=== PATIENT | female | born 1945 ===

== ENCOUNTER 2024-09-06 07:00 | Outpatient (CLI) | payer OTHER ==
[~2024-09-06] VITALS: Ht 152.4 cm; Wt 53.1 kg
[2024-09-06] MEDS ORDERED: PEPCID AC20 MG PO (12:36)
[2024-09-06] MEDS ORDERED: VERAPAMIL ER120 MG PO (12:36)
[2024-09-06] MEDS ORDERED: COZAAR50 MG PO (12:36)
[2024-09-06 12:54] VITALS: BP 180/65
[2024-09-06 13:04] LABS: INR 0.99; PARTIAL THROMBOPLASTIN TIME 27.3 SECONDS (22.0-34.0); PROTHROMBIN TIME 10.8 SECONDS (9.0-11.5)
[2024-09-07 06:22] LABS: RH POSITIVE
== END 2024-10-07 07:05 | disposition home or self-care (01) ==
LOC: LAB 07:00 → EDUNIT# 09:00 → SURH 09-13 09:00 → EDSTATUS 09-13 09:00 → LAB 10-07 07:05
PROVIDERS: ATTEND Colon & Rectal Surgery
DX: C18.0 Malignant neoplasm of cecum (principal); R59.0 Localized enlarged lymph nodes

== ENCOUNTER 2024-09-08 08:12 | Day surgery (SDC) | payer OTHER ==
[~2024-09-08 08:12] MED LIST: COZAAR50 MG PO; PEPCID AC20 MG PO; VERAPAMIL ER120 MG PO
[2024-09-08] MEDS ORDERED: ONDANSETRON HCL 2 MG/ML VIAL IV ONE (11:30)
[2024-09-08] MEDS ORDERED: MIDAZOLAM HCL 2 MG/2 ML VIAL IV ONE (11:30)
[2024-09-08] MEDS ORDERED: DIPHENHYDRAMINE HCL 50 MG/ML VIAL 1ML IV ONE (11:30)
[2024-09-08] MEDS ORDERED: fentaNYL CITRATE 50 MCG/ML AMPUL IV PUSH ONE (11:30)
== END 2024-09-08 12:50 | disposition home or self-care (01) ==
LOC: AMB-ENDOS 08:12
PROVIDERS: ATTEND Colon & Rectal Surgery
DX: D12.0 Benign neoplasm of cecum (principal); K63.5 Polyp of colon; K57.30 Diverticulosis of large intestine without perforation or abscess without bleeding

== ENCOUNTER 2025-01-26 07:55 | Day surgery (SDC) | payer OTHER ==
[2025-01-26] MEDS ORDERED: DIPHENHYDRAMINE HCL 50 MG/ML VIAL 1ML IV ONE (10:30)
[2025-01-26] MEDS ORDERED: ONDANSETRON HCL 2 MG/ML VIAL IV ONE (10:30)
[2025-01-26] MEDS ORDERED: MIDAZOLAM HCL 2 MG/2 ML VIAL IV ONE (10:30)
[2025-01-26] MEDS ORDERED: fentaNYL CITRATE 50 MCG/ML AMPUL IV PUSH ONE (10:30)
== END 2025-01-26 11:30 | disposition home or self-care (01) ==
LOC: AMB-ENDOS 07:55
PROVIDERS: ATTEND Colon & Rectal Surgery
DX: K63.5 Polyp of colon (principal); K62.1 Rectal polyp; K57.30 Diverticulosis of large intestine without perforation or abscess without bleeding